=== PATIENT | female | born 1945 | race Caucasian/White ===

== ENCOUNTER 2017-04-19 09:09 | Emergency (ER) | payer SELFPAY ==
[~2017-04-19] VITALS: Ht 152.4 cm; Wt 59.0 kg
[2017-04-19 10:12] LABS: PLATELET COUNT 205 x10^3mcL (130-400)
[2017-04-19 10:13] LABS: RED CELL DISTRIBUTION WIDTH 17.5 % (11.5-14.5)
[2017-04-19 10:17] LABS: CALCIUM 9.1 mg/dL (8.5-10.1); CARBON DIOXIDE 24.4 mmol/L (21-32); CHLORIDE SERUM 105 mmol/L (98-107); CREATININE SERUM 0.7 mg/dL (0.6-1.0); GLUCOSE SERUM 99 mg/dL (74-106); POTASSIUM SERUM 3.4 mmol/L (3.5-5.1); SODIUM SERUM 139 mmol/L (136-145)
[2017-04-19 10:28] LABS: ALKALINE PHOSPHATASE 95 U/L (46-116); ALT/SGPT 37 U/L (14-59); AST/SGOT 38 U/L (15-37); BILIRUBIN TOTAL 0.56 mg/dL (0.20-1.00); TOTAL PROTEIN, SERUM 6.8 g/dL (6.4-8.2)
[2017-04-19 10:29] LABS: ALBUMIN 2.6 g/dL (3.4-5.0)
[2017-04-19 10:37] LABS: UA SPECIFIC GRAVITY 1.015 (1.005-1.035); microscopic required? YES; urine erythrocyte NEGATIVE (NEGATIVE)
[2017-04-19 10:43] LABS: CK-MB < 0.5 ng/mL (0-3.6); CREATINE KINASE 28 U/L (26-192)
[2017-04-19] MEDS ORDERED: METHOTREXATE2.5 M2 PO (10:46)
[2017-04-19] MEDS ORDERED: VALIUM2 MG PO (10:50)
[2017-04-19] MEDS ORDERED: PREDNISONE1 MG PO (10:51)
[2017-04-19] MEDS ORDERED: PHARMASSURE FO0.4 MG PO (10:52)
[2017-04-19 11:07] LABS: AMPHETAMINE QUAL UR NONE DETECTED (NEG <=1000)
[2017-04-19 13:14] VITALS: BP 140/75
== END 2017-04-19 13:18 | disposition short-term general hospital (02) ==
LOC: EDBD 09:09 → ED 09:09
PROVIDERS: Emergency Medicine
DX: R41.82 Altered mental status, unspecified (principal); M06.9 Rheumatoid arthritis, unspecified; Z79.899 Other long term (current) drug therapy
CPT/HCPCS: 36415; 83880; Q0092